=== PATIENT | female | born 2000 | race Caucasian/White ===

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

== ENCOUNTER → 2021-01-13 | Outpatient (CLI) | payer BC, MEDICAID ==
--- NOTE | 2021-01-13 17:36 | Diagnostic Imaging Report ---
PROCEDURE: US OB SINGLE FETUS <14 WKS. TECHNIQUE: Multiple real-time grayscale images were obtained over the gravid uterus in various projections. INDICATION: dating. FINDINGS: There is an intrauterine gestational sac containing a pole consistent with 10 weeks 5 days gestation. heart rate was recorded at 172 BPM. No perigestational sac hemorrhage is detected. Adnexa are unremarkable. There is no free fluid. IMPRESSION: Single live IUP of 10 weeks 5 days gestational age with estimated date of confinement sonographically of 08/06/2021. Dictated by: Dictated on workstation # [id number]
== END ==
LOC: RAD 12:54
PROVIDERS: ATTEND Family Medicine
DX: Z34.91 Encounter for supervision of normal pregnancy, unspecified, first trimester (principal); Z3A.10 10 weeks gestation of pregnancy
CPT/HCPCS: 76801

== ENCOUNTER → 2021-03-07 | Outpatient (CLI) | payer MEDICAID ==
--- NOTE | 2021-03-07 15:55 | Diagnostic Imaging Report ---
INDICATION: anatomical survey and dates. TECHNIQUE: Multiple Real-time grayscale images were obtained over the gravid uterus. COMPARISON: None. FINDINGS: There is single live intrauterine fetus which is active and currently breech. The placenta is posterior and not low. The amniotic fluid index is normal. The maternal cervical length is 3.9 cm. The anatomical survey was normal with structures visualized including kidney, bladder, stomach, brain and ventricles, four-chamber heart, three vessel cord, spine, and cord insertion. The maternal adnexa appear normal. IMPRESSION: Current biometric measurements are consistent with a 17 week 5 day gestational age. No abnormalities were demonstrated. Biometrical measurements are as follows: Biparietal 3.73 cm, age 17 weeks 3 days. Head circumference 13.53 cm, age 17 weeks 1 days. Abdominal circumference 12.80 cm, age 18 weeks 3 days. Femur length 2.52 cm, age 17 weeks 5 days. Sonographic estimate age: 17 weeks 5 days. Sonographic estimated date of delivery: 08/10/2021. Estimated Weight: 215 gm (+/- 32 gm). LMP percentile: 24%. heart rate: 142 beats per minute. number: 1 of 1. IMPRESSION: Dictated by: Dictated on workstation # [id number]
== END ==
LOC: RAD 14:07
PROVIDERS: ATTEND Family Medicine
DX: Z34.92 Encounter for supervision of normal pregnancy, unspecified, second trimester (principal); Z3A.17 17 weeks gestation of pregnancy
CPT/HCPCS: 76805

== ENCOUNTER 2021-05-04 10:54 | Outpatient (CLI) | payer MEDICAID | END 2021-05-04 12:00 | disposition home or self-care (01) | LOC: WSo 10:54 → LDRP 10:55 → WSo 12:00 | PROVIDERS: ATTEND Family Medicine | DX: Z67.91 Unspecified blood type, Rh negative (principal) ==

== ENCOUNTER → 2021-05-11 | Outpatient (CLI) | payer MEDICAID ==
[~2021-05-11] VITALS: Ht 160 cm; Wt 65.0 kg
[~2021-05-11] MED LIST: ACETAMINOPHEN 500 MG TAB (TYLENOL) PO PRN; EPINEPHrine INJECTION 1 MG/ML AMP IM PRN; ONDANSETRON 4 MG/2 ML (SDV) Z0FRAN IV PRN; SOTROVIMAB 500 MG/NS 50 ML IVPB IV ONE; diphenhydrAMINE 50 MG/ML INJ (BENADRYL) IV PRN
[2021-05-11 09:48] VITALS: BP 120/72
[2021-05-11 11:18] VITALS: BP 120/67
== END ==
LOC: INFUSION 09:46
PROVIDERS: ATTEND Nurse Practitioner Family
DX: U07.1 COVID-19 (principal)

== ENCOUNTER 2021-07-15 05:56 | Outpatient (CLI) | payer MEDICAID ==
[~2021-07-15] VITALS: Ht 160 cm; Wt 72.0 kg
[2021-07-15 06:25] VITALS: BP 130/72
[2021-07-15 06:26] LABS: BILIRUBIN,URINE NEGATIVE (NEGATIVE); CLARITY,URINE SL CLOUDY; COLOR,URINE YELLOW; GLUCOSE, URINE (UA) NEGATIVE (NEGATIVE); KETONES,URINE NEGATIVE (NEGATIVE); LEUKOCYTE ESTERASE ,URINE NEGATIVE (NEGATIVE); NITRITE,URINE NEGATIVE (NEGATIVE); PH,URINE 6.5 (5-9); PROTEIN,URINE NEGATIVE (NEGATIVE)
[2021-07-15 06:33] LABS: BACTERIA,URINE NEGATIVE /HPF; SQUAMOUS EPITHELIAL CELL,UR 0-2 /HPF
[2021-07-15] MEDS ORDERED: PREN-142 PO (07:21)
--- NOTE | 2021-07-18 08:39 | Physician Query-Final Dx ---
VONDA,07/18/21 0839: Clinic Account Progress/Dx Physician Query: Please give diagnosis Please include # weeks gestation Date of Service Jul 15, 2021 at 05:56 LIZBET ELLIOTT MD 07/19/21 0702: Clinic Account Progress/Dx DIAGNOSIS: Diagnosis 1. IUP in 3rd trimester, non-labor 2. Low back pain-musculoskeletal VONDA,AprJul 18, 2021 08:39 LIZBET ELLIOTT MD Jul 19, 2021 07:02
== END 2021-07-15 07:23 | disposition home or self-care (01) ==
LOC: WSo 05:56 → LDRP 05:57 → WSo 07:23
PROVIDERS: ATTEND Family Medicine
DX: O26.893 Other specified pregnancy related conditions, third trimester (principal); M54.9 Dorsalgia, unspecified; Z3A.36 36 weeks gestation of pregnancy
CPT/HCPCS: 81000; G0463; 99212

== ENCOUNTER 2021-07-23 12:28 | Outpatient (CLI) | payer MEDICAID ==
[~2021-07-23] VITALS: Ht 162 cm; Wt 72.8 kg
[~2021-07-23 12:28] MED LIST changes: -ACETAMINOPHEN 500 MG TAB (TYLENOL) PO PRN; -EPINEPHrine INJECTION 1 MG/ML AMP IM PRN; -ONDANSETRON 4 MG/2 ML (SDV) Z0FRAN IV PRN; +PREN-142 PO; -SOTROVIMAB 500 MG/NS 50 ML IVPB IV ONE; -diphenhydrAMINE 50 MG/ML INJ (BENADRYL) IV PRN
[2021-07-23 14:25] VITALS: BP 122/67
[2021-07-23 14:26] VITALS: BP 122/67
--- NOTE | 2021-07-25 08:16 | Physician Query-Final Dx ---
VONDA,07/25/21 0816: Clinic Account Progress/Dx Physician Query: Please give diagnosis Please complete # weeks gestation Date of Service Jul 23, 2021 at 12:28 KENNEDY JAIMES MD 07/25/212009: Clinic Account Progress/Dx DIAGNOSIS: Diagnosis Third trimester 38 week gestation Decreased movement VONDA,AprJul 25, 2021 08:16 KENNEDY JAIMES MD Jul 25, 2021 20:10
[2021-07-27] MEDS ORDERED: IBUP-844 PO (07:09)
== END 2021-07-23 14:10 | disposition home or self-care (01) ==
LOC: LDRP 12:28 → WSo 12:28
PROVIDERS: ATTEND Family Medicine
DX: O36.8130 Decreased fetal movements, third trimester, not applicable or unspecified (principal); Z3A.38 38 weeks gestation of pregnancy
CPT/HCPCS: 99213

== ENCOUNTER 2021-07-25 09:56 | Inpatient (IN) | payer MEDICAID ==
[~2021-07-25] VITALS: Ht 63 cm; Wt 73.4 kg
[2021-07-25] VITALS (41 sets, daily range): BP systolic 93–147; BP diastolic 51–86
[2021-07-25 11:04] LABS: BILIRUBIN,URINE NEGATIVE (NEGATIVE); CLARITY,URINE CLEAR; COLOR,URINE YELLOW; GLUCOSE, URINE (UA) NEGATIVE (NEGATIVE); KETONES,URINE NEGATIVE (NEGATIVE); LEUKOCYTE ESTERASE ,URINE NEGATIVE (NEGATIVE); NITRITE,URINE NEGATIVE (NEGATIVE); PROTEIN,URINE NEGATIVE (NEGATIVE)
[2021-07-25 11:31] LABS: BACTERIA,URINE NEGATIVE /HPF; RBC,URINE RARE /HPF; WBC,URINE 0-2 /HPF
[2021-07-25] MEDS ORDERED: D5 LR IV SOLUTION 1,000 ML IV SCH (13:30)
[2021-07-25] MEDS ORDERED: MINERAL OIL 30 ML OIL TOP PRN (13:30)
[2021-07-25 13:35] LABS: BASOPHILS # (AUTO) 0.1 10^3/uL (0.0-0.1); BASOPHILS % (AUTO) 1 % (0-10); EOSINOPHILS # (AUTO) 0.1 10^3/uL (0.0-0.3); EOSINOPHILS % (AUTO) 1 % (0-10); HEMATOCRIT 38 % (35-52); HEMOGLOBIN 12.3 g/dL (11.5-16.0); LYMPHOCYTES # (AUTO) 1.9 10^3/uL (1.0-4.0); LYMPHOCYTES % (AUTO) 14 % (12-44); MEAN CORPUSCULAR HEMOGLOBIN 28 pg (25-34); MEAN CORPUSCULAR HGB CONC 33 g/dL (32-36); MEAN CORPUSCULAR VOLUME 86 fL (80-99); MEAN PLATELET VOLUME 10.8 fL (9.0-12.2); MONOCYTES # (AUTO) 0.8 10^3/uL (0.0-1.0); MONOCYTES % (AUTO) 6 % (0-12); NEUTROPHILS # (AUTO) 10.3 10^3/uL (1.8-7.8); NEUTROPHILS % (AUTO) 77 % (42-75); PLATELET COUNT 237 10^3/uL (130-400); WHITE BLOOD COUNT 13.5 10^3/uL (4.3-11.0)
[2021-07-25] MEDS ORDERED: CATHETER FLUSH 10 ML SYR IV SCH (14:00)
[2021-07-25] MEDS ORDERED: fentaNYL 2 mcg/ml BUPIVA 0.125 100 ML ONE (14:26)
[2021-07-25] MEDS ORDERED: BUPIVACAINE 0.25% 10 ML (SENSORCAINE) VIAL ONE (15:48)
[2021-07-25] MEDS ORDERED: fentaNYL INJ 100 MCG/2 ML AMP ONE (15:48)
[2021-07-25] MEDS ORDERED: ONDANSETRON 4 MG/2 ML (SDV) Z0FRAN ONE (15:49)
[2021-07-25] MEDS ORDERED: EPIDURAL (fentaNYL 2 MCG/ML BUPIVA 0.125%)100 ML BAG EPI PRN (16:00)
[2021-07-25] MEDS ORDERED: fentaNYL INJ 100 MCG/2 ML AMP INJ ONE (16:00)
[2021-07-25] MEDS ORDERED: NALOXONE 0.4 MG/ML 1 ML (NARCAN) VIAL IV PRN ×2 (16:00→22:45)
[2021-07-25] MEDS ORDERED: LACTATED RINGERS 1,000 ML IV ONE ×2 (16:00)
[2021-07-25] MEDS ORDERED: ONDANSETRON 4 MG/2 ML (SDV) Z0FRAN IV PRN (16:00)
--- NOTE | 2021-07-25 17:11 | History & Physical-OB ---
OB - Chief Complaint & HPI Date/Time Date of Admission: Date of Admission: Jul 25, 2021 at 13:15 Date seen by a Provider: Jul 25, 2021 Time Seen by a Provider: 13:30 Chief Complaint/History OB-Reason for Admission/Chief: Onset of Labor Hx : 1 Hx Para: 0 Expected Date of Delivery: Jul 25, 2021 Gestational Age in Weeks: 38 Gestational Age in Days: 2 Admission Nurse Assessment Rev: Yes History of Labs group B streptococcus negative Allergies and Home Medications Allergies Coded Allergies: codeine (Unverified Allergy, Unknown, 05/11/21) measles, mumps, and rubella vaccine (Verified Allergy, Unknown, 08/21/16) Patient Home Medication List Home Medication List Reviewed: Yes Vit No.124/Iron/FA ( Vitamin Tablet) 1 Each Tablet, 1 EACH PO DAILY, (Reported) Entered as Reported by: BRITTANY MORA on 07/15/21 0721 OB - History Hx of Present Care: Yes Ultrasounds: Normal mid trimester US Obstetrical Complications: None Medical Complications: None Obstetrical History Hx : 1 Hx Para: 0 Hx Total # of Abortions (Spona: 0 Delivery History Hx Blood Disorders: No Patient Past Medical History no chronic medical problems Social History/Family History Alcohol Use: Denies Use Recreational Drug Use: No 2nd Hand Smoke Exposure: No Immunizations Influenza Vaccine Up-to-Date: Yes; Up-to-Date Hepatitis A: No Hepatitis B: No Tetanus Booster (TDap): Less than 5yrs OB - Admission Exam Physical Exam Vitals: Vital Signs 07/25/21 07/25/21 07/25/21 07/25/21 11:51 14:15 16:17 16:35 Temp 36.7 Pulse 88 Resp 14 B/P (MAP) 147/65 (92) Pulse Ox 99 O2 Delivery Room Air HEENT: Moist Membranes Lungs: Clear Extremities: Normal Reflexes: Normal Cervical Dilatation: 3cm Effacement: 75% Station: -2 Membranes: Intact Heart Rate: 130's Contractions on Admission: < 5 Minutes Apart Intensity: Moderate Labs Laboratory Tests Test 07/25/21 10:45 07/25/21 13:20 Range/Units Urine Color YELLOW Urine Clarity CLEAR Urine pH 7.0 5-9 Urine Specific [place] 1.015 L 1.016-1.022 Urine Protein NEGATIVE NEGATIVE Urine Glucose (UA) NEGATIVE NEGATIVE Urine Ketones NEGATIVE NEGATIVE Urine Nitrite NEGATIVE NEGATIVE Urine Bilirubin NEGATIVE NEGATIVE Urine Urobilinogen 0.2 < = 1.0 MG/DL Urine Leukocyte Esterase NEGATIVE NEGATIVE Urine RBC (Auto) NEGATIVE NEGATIVE Urine RBC RARE /HPF Urine WBC 0-2 /HPF Urine Squamous Epithelial Cells 5-10 /HPF Urine Crystals NONE /LPF Urine Bacteria NEGATIVE /HPF Urine Casts NONE /LPF Urine Mucus NEGATIVE /LPF Urine Culture Indicated NO White Blood Count 13.5 H 4.3-11.0 10^3/uL Red Blood Count 4.38 3.80-5.11 10^6/uL Hemoglobin 12.3 11.5-16.0 g/dL Hematocrit 38 35-52 % Mean Corpuscular Volume 86 80-99 fL Mean Corpuscular Hemoglobin 28 25-34 pg Mean Corpuscular Hemoglobin Concent 33 32-36 g/dL Red Cell Distribution Width 16.2 H 10.0-14.5 % Platelet Count 237 130-400 10^3/uL Mean Platelet Volume 10.8 9.0-12.2 fL Immature Granulocyte % (Auto) 2 % Neutrophils (%) (Auto) 77 H 42-75 % Lymphocytes (%) (Auto) 14 12-44 % Monocytes (%) (Auto) 6 0-12 % Eosinophils (%) (Auto) 1 0-10 % Basophils (%) (Auto) 1 0-10 % Neutrophils # (Auto) 10.3 H 1.8-7.8 10^3/uL Lymphocytes # (Auto) 1.9 1.0-4.0 10^3/uL Monocytes # (Auto) 0.8 0.0-1.0 10^3/uL Eosinophils # (Auto) 0.1 0.0-0.3 10^3/uL Basophils # (Auto) 0.1 0.0-0.1 10^3/uL Immature Granulocyte # (Auto) 0.3 H 0.0-0.1 10^3/uL OB - Assessment/Plan/Diagnosis Assessment Assessment: active labor (at 38 weeks 2 days gestation) Admission Dx 1. Intrauterine at term 38 weeks 2 days gestation Admission Status: Inpatient Order (span 2 midnights) Reason for Inpatient Admission: labor and delivery Plan Plan: Expectant Management Induction Method: AROM Other Plan 1. Patient desires epidural -will give Pitocin augmentation if necessary LIZBET ELLIOTT MD Jul 25, 2021 17:11
[2021-07-25] MEDS ORDERED: OXYTOCIN PRE-MIX DRIP 500 ML IV PRN (17:45)
[2021-07-25] MEDS ORDERED: MEPIVACAINE (CARBOCAINE) 2% 50 ML VIAL ONE (21:03)
--- NOTE | 2021-07-25 22:39 | OB Labor & Delivery Record ---
L&D History Date of Service Date of Service: Jul 25, 2021 History Expected Date of Delivery: Jul 25, 2021 Gestational Age in Weeks: 38 Hx : 1 Hx Para: 1 Complications Events: Routine care Operative Indications (Cesarea: N/A-Vaginal Delivery Intrapartal Events: None L&D Stage1 Stage One Onset of Labor - Date: Jul 25, 2021 Onset of Labor - Time: 13:35 Monitors and Tracing Monitor Mode: Internal Heart Rate: 125 Monitor Decelerations: Variable Station: -2 Short Term Variability: Present Presentation: Vertex Vital Signs VS - Last 72 Hours, by Label 07/25/21 07/25/21 07/25/21 07/25/21 11:51 14:15 14:45 15:15 Temp 36.4 36.7 Pulse 92 99 87 88 Resp 14 14 16 B/P (MAP) 129/81 (97) 134/80 (98) 130/75 (93) Pulse Ox 97 O2 Delivery Room Air 07/25/21 07/25/21 07/25/21 07/25/21 15:56 15:59 16:02 16:05 Pulse 99 92 92 87 B/P (MAP) 126/75 (92) 125/73 (90) 128/76 (93) 129/76 (93) Pulse Ox 100 99 99 99 07/25/21 07/25/21 07/25/21 07/25/21 16:08 16:11 16:14 16:17 Pulse 86 92 89 91 Resp 16 14 B/P (MAP) 132/79 (96) 114/68 (83) 114/65 (81) 111/70 (84) Pulse Ox 98 98 98 98 07/25/21 07/25/21 07/25/21 07/25/21 16:21 16:25 16:27 16:35 Pulse 86 81 91 88 B/P (MAP) 117/72 (87) 117/71 (86) 114/68 (83) 147/65 (92) Pulse Ox 97 98 98 99 07/25/21 07/25/21 07/25/21 07/25/21 16:45 17:00 17:15 17:30 Temp 36.5 Pulse 78 76 75 78 Resp 18 16 16 B/P (MAP) 100/52 (68) 101/54 (70) 101/51 (68) 98/51 (67) Pulse Ox 98 98 98 96 07/25/21 07/25/21 07/25/21 07/25/21 17:45 18:00 18:15 18:30 Pulse 75 83 72 76 B/P (MAP) 93/52 (66) 120/67 (84) 111/58 (75) 105/59 (74) Pulse Ox 97 07/25/21 07/25/21 07/25/21 07/25/21 18:45 19:00 19:10 19:25 Temp 35.9 Pulse 81 81 81 74 B/P (MAP) 122/86 (98) 143/70 (94) 124/72 (89) 128/74 (92) 07/25/21 19:40 Pulse 80 B/P (MAP) 123/77 (92) Signs of Distress by FHT Signs of Distress No Rupture of Membranes Spontaneous Ruture of Membrane: No Amniotic Membrane Rupture Time: 1335 Amniotic Membrane Fluid Desc.: Clear Induction/Anesthesia Epidural Cath Placement - Time: 1600 L&D Stage2 Stage Two Stage II Date: Jul 25, 2021 Stage II Time: 22:17 Monitors and Tracing Monitor Mode: Internal Heart Rate: 125 Monitor Accelerations: Uniform Monitor Decelerations: Variable School Bus Attendant Variability: Average (6-10) Short Term Variability: Present Position: Right Occiput Anterior Presentation: Vertex Signs of Distress by FHT Signs of Distress no Cord Descript/Complications Cord Vessel Description: 3 Vessels Delivery Type Infant Delivery Method: Spontaneous Vaginal Anterior Shoulder: Right Episiotomy/Perineal Laceration Laceraction(s)/Extensions: No Episiotomy Description: None, Periurethral Extnsion/lac (L and minor no repair) Condition of Delivery 1 minute Comment: 8 5 minute Comment: 9 Condition of Condition of : Living Exam: No Observed Abnormalities Resuscitation Resuscitation: N/A - Spontaneous Resp L&D Stage3 Stage Three Stage III Date: Jul 25, 2021 Stage III Time: 22:22 Pictocin Pitocin Administration mu/min: 10 Pitocin ml/hr: 10 Placenta Delivery Placenta Delivery: Spontaneous Delivery Summary Summary Estimated blood loss (mL): 200 Condition of Delivery Examined: Cervix Examined Post Hemorrhage: No Intervention Required none LIZBET ELLIOTT MD Jul 25, 2021 22:39
[2021-07-25] MEDS ORDERED: BENZOCAINE/MENTHOL (DERMOPLAST) 56 ML CAN TP PRN (22:45)
[2021-07-25] MEDS ORDERED: OXYTOCIN PRE-MIX DRIP 500 ML IV SCH (22:45)
[2021-07-25] MEDS ORDERED: WITCH HAZEL(TUCKS) 40 EA JAR TOP PRN (22:45)
[2021-07-25] MEDS ORDERED: TETANUS,DIPTH,PERTUSS P/F (BOOSTRIX) 0.5 ML VIAL IM ONE (22:45)
[2021-07-25] MEDS ORDERED: MEASLES,MUMPS,RUBELLA 1 EA INJ SQ ONE (22:45)
[2021-07-25] MEDS: IBUPROFEN 600 MG (MOTRIN) TAB PO SCH (23:31)
[2021-07-25] MEDS: ACETAMINOPHEN 500 MG TAB (TYLENOL) PO SCH (23:31)
[2021-07-26 00:06] VITALS: BP 123/58
[2021-07-26 04:45] VITALS: BP 118/68
[2021-07-26] MEDS ORDERED: CATHETER FLUSH 10 ML SYR IV SCH (06:00)
[2021-07-26 06:13] LABS: BASOPHILS # (AUTO) 0.1 10^3/uL (0.0-0.1); BASOPHILS % (AUTO) 0 % (0-10); EOSINOPHILS % (AUTO) 0 % (0-10); HEMATOCRIT 34 % (35-52); LYMPHOCYTES % (AUTO) 12 % (12-44); MEAN CORPUSCULAR HEMOGLOBIN 28 pg (25-34); MEAN CORPUSCULAR HGB CONC 33 g/dL (32-36); MEAN CORPUSCULAR VOLUME 87 fL (80-99); MEAN PLATELET VOLUME 10.8 fL (9.0-12.2); MONOCYTES # (AUTO) 1.2 10^3/uL (0.0-1.0); MONOCYTES % (AUTO) 7 % (0-12); NEUTROPHILS # (AUTO) 12.8 10^3/uL (1.8-7.8); NEUTROPHILS % (AUTO) 79 % (42-75); PLATELET COUNT 215 10^3/uL (130-400); WHITE BLOOD COUNT 16.3 10^3/uL (4.3-11.0)
[2021-07-26] MEDS: IBUPROFEN 600 MG (MOTRIN) TAB PO SCH ×3 (06:28→18:17)
[2021-07-26] MEDS: ACETAMINOPHEN 500 MG TAB (TYLENOL) PO SCH ×3 (06:28→18:17)
[2021-07-26 09:15] VITALS: BP 121/68
[2021-07-26] MEDS: DOCUSATE SODIUM 100 MG (COLACE) CAP PO SCH ×2 (09:19→20:01)
[2021-07-26 12:30] VITALS: BP 121/75
--- NOTE | 2021-07-26 14:00 | Anesthesia-Regional Post-Op ---
Regional Patient Condition Mental Status: Alert, Oriented x3 Circulation: Same as Pre-Op Headache: Absent Sensation: Full Recovery Motor Block: Absent Post Op Complications Complications None Follow Up Care/Instructions Patient Instructions None needed. Anesthesia/Patient Condition Patient is doing well, no complaints, stable vital signs, no apparent adverse anesthesia problems. STIVEN AGUIRRE DO Jul 26, 2021 14:00
[2021-07-26 17:00] VITALS: BP 119/72
[2021-07-26] MEDS ORDERED: BISACODYL 10 MG SUPP (DULCOLAX) PR NR (17:30)
[2021-07-26 20:01] VITALS: BP 114/76
[2021-07-27 00:22] VITALS: BP 127/78
[2021-07-27] MEDS: IBUPROFEN 600 MG (MOTRIN) TAB PO SCH ×3 (00:24→11:53)
[2021-07-27] MEDS: ACETAMINOPHEN 500 MG TAB (TYLENOL) PO SCH ×3 (00:24→11:53)
[2021-07-27 03:54] VITALS: BP 126/79
[2021-07-27 06:35] VITALS: BP 116/73
--- NOTE | 2021-07-27 07:08 | Discharge Summary ---
Diagnosis/Chief Complaint Date of Admission Jul 25, 2021 at 13:15 Date of Discharge July 27, 2021 Discharge Date: Jul 27, 2021 Discharge Time: 11:00 Admission Diagnosis Admission Diagnosis 1. Intrauterine at term 38 weeks Discharge Diagnosis 1. Intrauterine at term 38 weeks Reason Hospital Visit 21-year-old 1 now term 1 L1 who initially presented to labor and delivery with uterine contractions in the morning of July 25, 2021. Her EDC is August 06, 2021 and her GBS status was noted to be negative. Upon presentation she was noted to have intact membranes. Discharge Summary-OBS Procedures 1. Epidural per anesthesia 2. Spontaneous vaginal delivery Discharge Physical Examination Allergies: Coded Allergies: codeine (Unverified Allergy, Unknown, 05/11/21) measles, mumps, and rubella vaccine (Verified Allergy, Unknown, 08/21/16) Vitals & I&Os Vital Signs Date Time Temp Pulse Resp B/P (MAP) Pulse Ox O2 Delivery O2 Flow Rate FiO2 07/27/21 06:35 36.2 78 18 116/73 (87) 99 Room Air General Appearance: Alert, No Acute Distress Respiratory: Clear to Auscultation Cardiovascular: Regular Rate Abdominal: Normal Bowel Sounds, Soft (with uterus firm) Neuro: Normal Speech Psych/Mental Status: Mental Status NL Hospital Course patient was admitted on July 25, 2021 in active labor. She underwent antepartum care orders. She required low-dose Pitocin augmentation. Epidural was given per anesthesia and patient tolerated well. Ultimately she went on to deliver a term viable female with Apgars of 8 at 1 minute and 9 at 5 minutes. There was no episiotomy and she only had minor periurethral tear on the left. following delivery she underwent routine care orders. She had complained of having pressure in the vagina on the day after delivery of July 26, 2021. Ultimately she had 2 bowel movements and felt better. She was ambulatory and without any chest pain or shortness of breath. Her hemoglobin on admission compared to 24 hours later was 12.3 versus 11.0 respectively. She had some cramping just prior to dismissal but this was controlled with ibuprofen. She will be released to home in the morning of July 27, 2021 Discharge Instructions to patient/family Please see electronic discharge instructions given to patient. Discharge Medications Reviewed and agree with Discharge Medication list on patient's Discharge Instruction sheet LIZBET ELLIOTT MD Jul 27, 2021 07:08
[2021-07-27] MEDS ORDERED: IBUP-844 PO (07:09)
--- NOTE | 2021-07-27 07:10 | Discharge Inst-Women's Service ---
Discharge Inst-Women's Serv Depart Medication/Instructions New, Converted or Re-Newed RX: [facility] Problems Reviewed?: Yes Consults/Follow Up Additional Follow Up: Yes (with Dr. Elliott in 6 weeks) Activity Activity: Activity as Tolerated Driving Instructions: No Driving for 1 Week Nothing Inside Vagina: No Lucas (for 6 weeks) Diet Discharge Diet: Regular Diet Return to The Hospital For: as below Symptoms to Report to : Bleeding Excessive, Pain Increased, Fever Over 101 Degrees F, Vaginal Discharge Foul For Any Problems or Questions: Contact Your Physician LIZBET ELLIOTT MD Jul 27, 2021 07:10
[2021-07-27 08:30] VITALS: BP 129/76
[2021-07-27] MEDS: DOCUSATE SODIUM 100 MG (COLACE) CAP PO SCH (08:49)
[2021-07-27] MEDS ORDERED: TETANUS,DIPTH,PERTUSS P/F (BOOSTRIX) 0.5 ML VIAL IM ONE (08:55)
[2021-07-27 12:10] VITALS: BP 129/76
== END 2021-07-27 12:10 | disposition home or self-care (01) | DRG 807 ==
LOC: WSo 09:56 → LDRP 09:57 → WSo 13:15 → LDRP 23:30
PROVIDERS: ADMIT Family Medicine; ATTEND Family Medicine
PROC: 10E0XZZ Delivery of Products of Conception, External Approach (ICD-10-PCS; principal; 2021-07-25)
DX: O71.82 Other specified trauma to perineum and vulva (principal); Z37.0 Single live birth; Z3A.38 38 weeks gestation of pregnancy; Z88.5 Allergy status to narcotic agent; Z88.7 Allergy status to serum and vaccine; Z23 Encounter for immunization
CPT/HCPCS: 36415; 81000; 83033; 85025; 86850; 86900; 86901; 90715; 99212

== ENCOUNTER 2022-07-12 00:14 | Emergency (ER) | payer MEDICAID ==
[~2022-07-12] VITALS: Ht 160 cm; Wt 71.2 kg
[~2022-07-12 00:14] MED LIST changes: +IBUP-844 PO
[2022-07-12] MEDS ORDERED: KETOROLAC 30 MG/ML VIAL IVP ONE (00:45)
[2022-07-12] MEDS ORDERED: ONDANSETRON 4 MG/2 ML (SDV) Z0FRAN IVP ONE (00:45)
[2022-07-12] MEDS ORDERED: LACTATED RINGERS 1,000 ML IV ONE (00:45)
--- NOTE | 2022-07-12 00:47 | ED General ---
General Chief Complaint: Oral/Throat Problems Stated Complaint: SORE THROAT/FEVER/CHILLS Nursing Triage Note: TO ED VIA POV AND AMBULATORY TO ROOM 6 WITH C/O SORE THROAT SINCE 1400. STATES SHE TOOK TYLENOL AT 2230. Source of Information: Patient Exam Limitations: No Limitations History of Present Illness Date Seen by Provider: Jul 12, 2022 Time Seen by Provider: 00:21 Initial Comments This 22-year-old young lady presents to the emergency room with fever, chills, nausea, headache, and intense sore throat with difficulty swallowing since about 1400 yesterday. She took Tylenol at about 2200 without significant relief. She has not had any known illness exposures. She appears very uncomfortable and is flushed in the face. She is tachycardic during collection of vital signs. She reports dysuria a few days ago which has since resolved. She is uncertain about with an LMP sometime the beginning of May. Allergies and Home Medications Allergies Coded Allergies: codeine (Unverified Allergy, Unknown, 05/11/21) measles, mumps, and rubella vaccine (Verified Allergy, Unknown, 08/21/16) Patient Home Medication List Home Medication List Reviewed: Yes Amoxicillin (Amoxicillin) 500 Mg Capsule, 1,000 MG PO BID Prescribed by: DOM MONTGOMERY on 07/12/22 015 Ibuprofen (Ibu) 600 Mg Tablet, 600 MG PO Q6HR Prescribed by: LIZBET ELLIOTT on 07/27/21 0709 Ondansetron (Ondansetron Odt) 4 Mg Tab.rapdis, 4 MG SL Q4H PRN for NAUSEA/VOMITING Prescribed by: DOM MONTGOMERY on 07/12/22 015 Vit No.124/Iron/FA ( Vitamin Tablet) 1 Each Tablet, 1 EACH PO DAILY, (Reported) Entered as Reported by: BRITTANY MORA on 07/15/21 0721 Review of Systems Review of Systems Constitutional: see HPI EENTM: see HPI Respiratory: no symptoms reported Cardiovascular: see HPI Gastrointestinal: see HPI Genitourinary: see HPI : No Musculoskeletal: no symptoms reported Skin: no symptoms reported Psychiatric/Neurological: No Symptoms Reported Hematologic/Lymphatic: No Symptoms Reported Immunological/Allergic: no symptoms reported Past Lfcaafw-Qckvij-Hpebff Hx Patient Social History Tobacco Use?: Yes Smoking Status: Current Everyday Smoker Use of E-Cig and/or Vaping dev: Yes E-Cig or Vaping type used: Nicotine Substance use?: No Alcohol Use?: No Immunizations Up To Date Tetanus Booster (TDap): Less than 5yrs PED Vaccines UTD: No Influenza Vaccine Up-to-Date: No; Not Current Past Medical History Surgery/Hospitalization HX: none Surgeries: Yes Adenoidectomy, Tonsillectomy Respiratory: No Cardiac: No Neurological: No Genitourinary: No Gastrointestinal: No Musculoskeletal: No Endocrine: No HEENT: No Tonsilitis Cancer: No Psychosocial: No Integumentary: No Blood Disorders: No Physical Exam Vital Signs Vital Signs - First Documented 07/12/22 00:23 Temp 39.2 Pulse 122 Resp 18 B/P (MAP) 126/72 (90) Pulse Ox 98 O2 Delivery Room Air Capillary Refill : Less Than 3 Seconds Height, Weight, BMI Height: 5'4.00" Weight: 125lbs. oz. 56.872813mq; 27.00 BMI Method:Estimated General Appearance: WD/WN, Mild Distress HEENT: PERRL/EOMI, TMs Normal, Normal ENT Inspection, Pharynx Normal Neck: Normal Inspection Respiratory: Lungs Clear, Normal Breath Sounds, No Accessory Muscle Use Cardiovascular: No Edema, No Murmur, Tachycardia Gastrointestinal: Non Tender, Soft Extremity: Normal Inspection, No Pedal Edema Neurologic/Psychiatric: Alert, Oriented x3, No Motor/Sensory Deficits, Normal Mood/Affect Skin: Normal Color, Warm/Dry Progress/Results/Core Measures Suspected Sepsis SIRS Temperature: Pulse: 122 Respiratory Rate: 18 Laboratory Tests 07/12/22 00:44: White Blood Count 15.3H Blood Pressure 126 /72 Mean: 90 Laboratory Tests 07/12/22 00:44: Creatinine 0.84, Platelet Count 235 Results/Orders Lab Results Laboratory Tests Test 07/12/22 00:25 07/12/22 00:28 07/12/22 00:44 Range/Units Influenza Type A (RT-PCR) Not Detected Not Detecte Influenza Type B (RT-PCR) Not Detected Not Detecte SARS-CoV-2 RNA (RT-PCR) Not Detected Not Detecte Group A Streptococcus Screen NEGATIVE NEGATIVE Urine Color YELLOW Urine Clarity CLEAR Urine pH 6.5 5-9 Urine Specific [place] 1.025 H 1.016-1.022 Urine Protein TRACE H NEGATIVE Urine Glucose (UA) NEGATIVE NEGATIVE Urine Ketones NEGATIVE NEGATIVE Urine Nitrite NEGATIVE NEGATIVE Urine Bilirubin NEGATIVE NEGATIVE Urine Urobilinogen 1.0 < = 1.0 MG/DL Urine Leukocyte Esterase TRACE H NEGATIVE Urine RBC (Auto) NEGATIVE NEGATIVE Urine RBC 0-2 /HPF Urine WBC 10-25 H /HPF Urine Squamous Epithelial Cells 25-50 H /HPF Urine Crystals NONE /LPF Urine Bacteria LARGE H /HPF Urine Casts NONE /LPF Urine Mucus LARGE H /LPF Urine Culture Indicated NO White Blood Count 15.3 H 4.3-11.0 10^3/uL Red Blood Count 4.43 3.80-5.11 10^6/uL Hemoglobin 12.5 11.5-16.0 g/dL Hematocrit 37 35-52 % Mean Corpuscular Volume 84 80-99 fL Mean Corpuscular Hemoglobin 28 25-34 pg Mean Corpuscular Hemoglobin Concent 34 32-36 g/dL Red Cell Distribution Width 12.9 10.0-14.5 % Platelet Count 235 130-400 10^3/uL Mean Platelet Volume 10.2 9.0-12.2 fL Immature Granulocyte % (Auto) 0 % Neutrophils (%) (Auto) 87 H 42-75 % Lymphocytes (%) (Auto) 5 L 12-44 % Monocytes (%) (Auto) 7 0-12 % Eosinophils (%) (Auto) 0 0-10 % Basophils (%) (Auto) 0 0-10 % Neutrophils # (Auto) 13.4 H 1.8-7.8 10^3/uL Lymphocytes # (Auto) 0.8 L 1.0-4.0 10^3/uL Monocytes # (Auto) 1.0 0.0-1.0 10^3/uL Eosinophils # (Auto) 0.0 0.0-0.3 10^3/uL Basophils # (Auto) 0.0 0.0-0.1 10^3/uL Immature Granulocyte # (Auto) 0.1 0.0-0.1 10^3/uL Neutrophils % (Manual) 82 % Lymphocytes % (Manual) 6 % Monocytes % (Manual) 5 % Band Neutrophils 7 % Toxic Granulation 1+ Microcytosis SLIGHT Stomatocytes SLIGHT Sodium Level 137 135-145 MMOL/L Potassium Level 3.7 3.6-5.0 MMOL/L Chloride Level 105 98-107 MMOL/L Carbon Dioxide Level 21 21-32 MMOL/L Anion Gap 11 5-14 MMOL/L Blood Urea Nitrogen 11 7-18 MG/DL Creatinine 0.84 0.60-1.30 MG/DL Estimat Glomerular Filtration Rate 101 BUN/Creatinine Ratio 13 Glucose Level 107 H 70-105 MG/DL Calcium Level 9.0 8.5-10.1 MG/DL C-Reactive Protein High Sensitivity 3.04 H 0.00-0.50 MG/DL Serum Test, Qualitative NEGATIVE NEGATIVE Monoscreen NEGATIVE NEGATIVE My Orders Orders - DOM ORTIZ MD Rapid Strep A Screen (07/12/22 00:21) Covid 19 Inhouse Test (07/12/22 00:21) Influenza A And B By Pcr (07/12/22 00:21) Ed Iv/Invasive Line Start (07/12/22 00:41) Lactated Ringers (Lr 1000 Ml Iv Solution (07/12/22 00:45) Ondansetron Injection (Zofran Injectio (07/12/22 00:45) Ketorolac Injection (Toradol Injection) (07/12/22 00:45) Basic Metabolic Panel (07/12/22 00:41) Cbc With Automated Diff (07/12/22 00:41) Hcg,Qualitative Serum (07/12/22 00:41) Throat Culture Strep A Confirm (07/12/22 00:25) Manual Differential (07/12/22 00:44) Hs C Reactive Protein (07/12/22 01:14) Monotest (07/12/22 01:14) Ua Culture If Indicated (07/12/22 01:14) Urine Culture (07/12/22 01:46) Ceftriaxone 1 Gm Pre-Mix (Rocephin 1 Gm (07/12/22 02:02) Medications Given in ED Current Medications Medications Dose Ordered Sig/Nabeel Route Start Time Stop Time Status Last Admin Dose Admin Ketorolac Tromethamine 30 mg ONCE ONCE IVP 07/12/22 00:45 07/12/22 00:46 DC 07/12/22 00:51 30 MG Lactated Ringer's 1,000 ml @ 0 mls/hr Q0M ONCE IV 07/12/22 00:45 07/12/22 00:46 DC 07/12/22 00:51 999 MLS/HR Ondansetron HCl 8 mg ONCE ONCE IVP 07/12/22 00:45 07/12/22 00:46 DC 07/12/22 00:51 8 MG Vital Signs/I&O 07/12/22 07/12/22 07/12/22 00:23 01:03 02:15 Temp 39.2 38.3 Pulse 122 98 96 Resp 18 16 B/P (MAP) 126/72 (90) 105/57 Pulse Ox 98 99 98 O2 Delivery Room Air Room Air Room Air Capillary Refill : Less Than 3 Seconds Blood Pressure Mean: 90 Progress Note : Progress Note Patient was treated with a liter of LR, Zofran, and Toradol with significant improvement in symptoms. Labs were initially assessed with CBC, BMP, and serum test. Rapid strep as well as flu and COVID swabs were obtained. These rapid test were negative. Significant leukocytosis of 15,000 was noted. Monotest, CRP, and urinalysis were added. Monotest was negative. CRP was minimally elevated. Urinalysis suggested pyuria versus contamination. Given the significant fever, tachycardia, and leukocytosis, patient was empirically treated with Rocephin. Patient should follow-up on her throat culture results and urine culture results. Antibiotic therapy will be continued on an outpatient basis with amoxicillin as prescribed. Zofran was also prescribed for management of her nausea. Departure Impression Primary Impression: Febrile illness, acute Additional Impressions: Sore throat Vomiting Qualified Codes: R11.2 - Nausea with vomiting, unspecified Disposition: HOME, SELF-CARE Condition: Improved Departure-Patient Inst. Decision time for Depature: 01:50 Referrals: LIZBET ELLIOTT MD (PCP/Family) Primary Care Physician Patient Instructions: Sore Throat in Adults, Fever, Adult ED Add. Discharge Instructions: Drink plenty of clear liquids to stay well-hydrated. For pain and fever you may take ibuprofen up to 600 mg every 6 hours as needed and/or Tylenol (acetaminophen) up to 1000 mg every 6 hours as needed. Complete your antibiotics as prescribed. A throat culture and a urine culture are being performed in the lab. Results should be available in about 48 hours. You may call Sunday afternoon if you would like to discuss results of your cul tures. Use Zofran (ondansetron) as prescribed for nausea and vomiting. Return to the ER if you have worsening symptoms despite following these instructions. All discharge instructions reviewed with patient and/or family. Voiced understanding. Scripts Ondansetron (Ondansetron Odt) 4 Mg Tab.rapdis 4 MG SL Q4H PRN for NAUSEA/VOMITING, #10 TAB Prov: DOM ORTIZ MD 07/12/22 Amoxicillin (Amoxicillin) 500 Mg Capsule 1000 MG PO BID, #40 CAP 0 Refills Prov: DOM ORTIZ MD 07/12/22 Copy Copies To 1: LIZBET ELLIOTT MD, JOSHUA T MD Jul 12, 2022 00:47
[2022-07-12 01:01] LABS: BASOPHILS % (AUTO) 0 % (0-10); EOSINOPHILS % (AUTO) 0 % (0-10); HEMATOCRIT 37 % (35-52); HEMOGLOBIN 12.5 g/dL (11.5-16.0); LYMPHOCYTES # (AUTO) 0.8 10^3/uL (1.0-4.0); LYMPHOCYTES % (AUTO) 5 % (12-44); MEAN CORPUSCULAR HEMOGLOBIN 28 pg (25-34); MEAN CORPUSCULAR HGB CONC 34 g/dL (32-36); MEAN CORPUSCULAR VOLUME 84 fL (80-99); MEAN PLATELET VOLUME 10.2 fL (9.0-12.2); MONOCYTES % (AUTO) 7 % (0-12); NEUTROPHILS # (AUTO) 13.4 10^3/uL (1.8-7.8); NEUTROPHILS % (AUTO) 87 % (42-75); PLATELET COUNT 235 10^3/uL (130-400); WHITE BLOOD COUNT 15.3 10^3/uL (4.3-11.0)
[2022-07-12 01:04] LABS: POTASSIUM 3.7 MMOL/L (3.6-5.0)
[2022-07-12 01:09] LABS: CREATININE SERUM 0.84 MG/DL (0.60-1.30)
[2022-07-12 01:24] LABS: BILIRUBIN,URINE NEGATIVE (NEGATIVE); CLARITY,URINE CLEAR; COLOR,URINE YELLOW; GLUCOSE, URINE (UA) NEGATIVE (NEGATIVE); KETONES,URINE NEGATIVE (NEGATIVE); LEUKOCYTE ESTERASE ,URINE TRACE (NEGATIVE); NITRITE,URINE NEGATIVE (NEGATIVE); PH,URINE 6.5 (5-9); PROTEIN,URINE TRACE (NEGATIVE)
[2022-07-12 01:42] LABS: BAND NEUTROPHILS 7 %; LYMPHOCYTES % (MANUAL) 6 %; MICROCYTOSIS SLIGHT; MONOCYTES % (MANUAL) 5 %; NEUTROPHILS % (MANUAL) 82 %; STOMATOCYTES SLIGHT
[2022-07-12 01:43] LABS: TOXIC GRANULATION/VACUOLAZATIO 1+
[2022-07-12 01:43] LABS: BACTERIA,URINE LARGE /HPF; RBC,URINE 0-2 /HPF; SQUAMOUS EPITHELIAL CELL,UR 25-50 /HPF
[2022-07-12] MEDS ORDERED: ONDA4TAB11 SL (01:53)
[2022-07-12] MEDS ORDERED: AMOX500C2 PO (01:53)
[2022-07-12] MEDS ORDERED: cefTRIAXone PRE-MIX 50 ML IV STA (02:02)
[2022-07-12 02:15] VITALS: BP 105/57
== END 2022-07-12 02:15 | disposition home or self-care (01) ==
LOC: EDUNIT# 00:14 → ER 00:16
DX: R50.9 Fever, unspecified (principal); J02.9 Acute pharyngitis, unspecified; R11.2 Nausea with vomiting, unspecified; R79.82 Elevated C-reactive protein (CRP); F17.290 Nicotine dependence, other tobacco product, uncomplicated; Z20.822 Contact with and (suspected) exposure to COVID-19; Z28.310 Unvaccinated for COVID-19
CPT/HCPCS: 36415; 80048; 81000; 84703; 85007; 85027; 86141; 86308; 87077; 87088; 87430; 87636